=== PATIENT | male | born 1945 | race Two or more races ===

== ENCOUNTER 2017-09-23 23:53 | Emergency (ER) | payer MEDICARE, OTHER ==
[~2017-09-23] VITALS: Ht 170.2 cm; Wt 74.8 kg
[~2017-09-23 23:53] MED LIST: CLONIDINE HCL0.2 MG PO; ENALAPRIL MALEA20 MG PO; LABETALOL HCL200 MG PO; NIFEDIAC CC60 MG PO; NORVASC10 MG PO; RENAPLEX-D PO; TOPROL XL50 MG PO
[2017-09-24] MEDS ORDERED: CLONIDINE HCL 0.2 MG TAB PO ONE (00:15)
== END 2017-09-24 00:43 | disposition left against medical advice (07) ==
LOC: ER 23:59
DX: M25.532 Pain in left wrist (principal)